=== PATIENT | female | born 1985 | race Caucasian/White ===

== ENCOUNTER 2025-05-07 14:41 | Emergency (ER) | payer SELFPAY | END 2025-05-07 17:01 | disposition home or self-care (01) | LOC: NAV ERS 14:41 | DX: M48.07 Spinal stenosis, lumbosacral region (principal); M51.379 Other intervertebral disc degeneration, lumbosacral region without mention of lumbar back pain or lower extremity pain; G89.29 Other chronic pain; M54.9 Dorsalgia, unspecified; V89.2XXA Person injured in unspecified motor-vehicle accident, traffic, initial encounter | CPT/HCPCS: 72131; 96372; 99283; J1885 ==